=== PATIENT | male | born 1970 | race Caucasian/White ===

== ENCOUNTER 2022-12-20 08:10 | Day surgery (SDC) | payer OTHER ==
[2022-12-15 12:35] VITALS: BMI 29.0
[~2022-12-20 08:10] MED LIST: LACTATED RINGERS 1,000 ML IV SCH
[2022-12-20 08:51] VITALS: TEMP 98.1
[2022-12-20] MEDS ORDERED: LIDOCAINE 2% INJ 20 MG/ML (2 ML VIAL) ONE (08:51)
[2022-12-20] MEDS ORDERED: PROPOFOL 10 MG/ML 20 ML VIAL IV ONE (08:51)
[2022-12-20] MEDS ORDERED: MIDAZOLAM 2 MG/2 ML VIAL ONE (08:51)
[2022-12-20] MEDS ORDERED: fentaNYL (PF) 50 MCG/ML 2 ML AMP ONE (08:51)
--- NOTE | 2022-12-20 09:06 | P.PCN ---
Date of Procedure: 12/20/22 Procedure(s) Performed: BRIEF HISTORY: Patient is a 52-year-old, pleasant, white the male scheduled for an upper endoscopy as a part of evaluation of throat irritation and increased phlegm for the last 6 months duration. He was evaluated by ENT and was told his symptoms are related to GERD and was started on Prilosec 20 mg daily and symptoms and his feeling much better.. He also complains of occasional dysphagia to solids. PROCEDURE PERFORMED: Esophagogastroduodenoscopy with biopsy. PREOPERATIVE DIAGNOSIS: Throat irritation and intermittent dysphagia to solids. IV sedation per anesthesia. PROCEDURE: After informed consent was obtained, the patient was brought into the endoscopy unit. IV sedation was administered by Anesthesia under continuous monitoring. Initially the Olympus GIF-140 video endoscope was inserted into the mouth. Esophagus intubated without any difficulty. It was gradually advanced into the stomach and duodenum and carefully examined. The bulb and the second part of the duodenum appeared normal. The scope at this time was withdrawn to the stomach, adequately insufflated with air, and upon careful examination, mucosa of the antrum, mild gastritis and biopsies were done from this area. Mucosa of the body, cardia and the fundus appeared normal. The scope was then wi thdrawn into the esophagus. The GE junction was located at 42 cm from the incisors. The esophagus appeared normal. There were no erosions or ulcerations seen, biopsies were done from the distal esophagus and the patient tolerated the procedure well. IMPRESSION: 1. Normal-appearing esophagus with no evidence of esophagitis or esophageal stricture. 2. No hiatal hernia 3. Mild antral gastritis. RECOMMENDATIONS: The findings of this examination were discussed with the patient as well as his family. He was advised to follow with the biopsy results. As his feeling better on Prilosec 20 mg daily and was advised to continue the same and follow antireflux measures. 52
[2022-12-20] MEDS ORDERED: IV FLUID CONTINUATION 800 ML IV ONE (09:14)
[2022-12-20 09:18] VITALS: RESP 16
[2022-12-20 09:25] VITALS: BP 148/95; PULSE 66
== END 2022-12-20 09:48 | disposition home or self-care (01) ==
LOC: ORWHC2ENDO 08:10
PROVIDERS: ATTEND Internal Medicine Gastroenterology
DX: K29.50 Unspecified chronic gastritis without bleeding (principal); K21.9 Gastro-esophageal reflux disease without esophagitis; Z79.899 Other long term (current) drug therapy; Z79.82 Long term (current) use of aspirin; Z98.890 Other specified postprocedural states
CPT/HCPCS: 43239; J2250; J3010; J2704; J2001; 88305